=== PATIENT | female | born 1960 | race Caucasian/White ===

== ENCOUNTER 2016-10-10 08:43 | Emergency (ER) | payer BC ==
[2016-10-10] MEDS ORDERED: KETOROLAC 60 MG/2 ML VIAL IM STA (09:14)
[2016-10-10] MEDS ORDERED: ONDANSETRON ODT 4 MG TAB PO STA (09:14)
--- NOTE | 2016-10-10 09:16 | ED ---
General Adult HPI - General Chief complaint: Back Pain/Injury Stated complaint: LOWER BACK PAIN, VOMITING Time Seen by Provider: 10/10/16 09:02 Source: patient, RN notes reviewed Mode of arrival: wheelchair Limitations: no limitations - History of Present Illness Initial comments: Patient 56-year-old female who presents emergency room today with a chief complaint of exacerbation of chronic back pain. She does admit that she's been going to chiropractor. She states that she's had increased pain both right and left sides. Denies any lumbar radiculopathy. Denies any saddle anesthesia. Denies any bowel or bladder incontinence or retention. Does admit that increased last night. She states she became nauseous had episodes of vomiting. Patient states she has been using ibuprofen at home for the pain but has not been able to take it due to the nausea. Patient denies any other complaints or symptoms currently. She does state that this feels like her chronic back pain. Patient denies any recent fever, chills, shortness of breath, chest pain, abdominal pain, numbness or tingling, dysuria or hematuria, constipation or diarrhea, headaches or visual changes, or any other complaints. - Related Data Home Medications Medication Instructions Recorded Confirmed Levothyroxine Sodium [Synthroid] 88 mcg PO DAILY 10/10/16 10/10/16 Previous Rx's Medication Instructions Recorded Hydrocodone/Acetaminophen [[place] 1 each PO Q6HR PRN #20 tab 10/10/16 5-325] Ibuprofen [Motrin] 800 mg PO Q6HR PRN #30 tab 10/10/16 Ondansetron Odt [Zofran ODT] 4 mg PO Q8HR PRN #15 tab 10/10/16 Allergies Allergy/AdvReac Type Severity Reaction Status Date / Time No Known Allergies Allergy Verified 10/10/16 09:39 Review of Systems ROS Statement: Those systems with pertinent positive or pertinent negative responses have been documented in the HPI. ROS Other: All systems not noted in ROS Statement are negative. Past Medical History Past Medical History: Thyroid Disorder History of Any Multi-Drug Resistant Organisms: None Reported Past Surgical History: Hysterectomy, Orthopedic Surgery Additional Past Surgical History / Comment(s): sinus Past Psychological History: No Psychological Hx Reported Smoking Status: Former smoker Past Alcohol Use History: Occasional Past Drug Use History: None Reported General Exam - General Exam Comments Initial Comments: General: The patient is awake and alert, in no distress, and does not appear acutely ill. Eye: Pupils are equal, round and reactive to light, extra-ocular movements are intact. No nystagmus. There is normal conjunctiva bilaterally. No signs of icterus. Ears, nose, mouth and throat: There are moist mucous membranes and no oral lesions. Neck: The neck is supple, there is no tenderness or JVD. Cardiovascular: There is a regular rate and rhythm. No murmur, rub or gallop is appreciated. Respiratory: Lungs are clear to auscultation, respirations are non-labored, breath sounds are equal. No wheezes, stridor, rales, or rhonchi. Gastrointestinal: Soft, non-distended, non-tender abdomen without masses or organomegaly noted. There is no rebound or guarding present. No CVA tenderness. Bowel sounds are unremarkable. Musculoskeletal: Normal appearance of the lower back. No step-offs deformity of the thoracic or lumbar spine. Patient does have paravertebral tenderness is reproducible on both right and left lower lumbar. Strength 5/5. Sensation intact. Pulses equal bilaterally 2+. Neurological: A&O x 3. CN II-XII intact, There are no obvious motor or sensory deficits. Coordination appears grossly intact. Speech is normal. Skin: Skin is warm and dry and no rashes or lesions are noted. Psychiatric: Cooperative, appropriate mood & affect, normal judgment. Limitations: no limitations Course Vital Signs 10/10/16 08:55 Temperature 99.8 F H Pulse Rate 98 Respiratory 20 Rate Blood Pressure 112/78 O2 Sat by Pulse 99 Oximetry Medical Decision Making - Medical Decision Making Patient reexamined at this time shows no signs of distress. Does admit that she 's feeling better here in the emergency room. Was given a short of Toradol. Patient will be discharged home with a prescription of [place] along with ibuprofen and nausea medication. Advised follow-up the family doctor over the next 2 days return if symptoms increase or worsen or for any other concerns. - Lab Data Lab Results 10/10/16 Range/Units 09:40 Urine Color Yellow Urine Appearance Clear (Clear) Urine pH 7.5 (5.0-8.0) Ur Specific [place] 1.018 (1.001-1.035) Urine Protein Negative (Negative) Urine Glucose (UA) Negative (Negative) Urine Ketones Negative (Negative) Urine Blood Negative (Negative) Urine Nitrate Negative (Negative) Urine Bilirubin Negative (Negative) Urine Urobilinogen <2.0 (<2.0) mg/dL Ur Leukocyte Esterase Negative (Negative) Disposition Clinical Impression: Acute exacerbation of chronic low back pain Disposition: HOME SELF-CARE Condition: Good Instructions: Acute Low Back Pain (ED) Additional Instructions: Please use medication as discussed. Beware that pain medication may make you drowsy. Please follow-up with family doctor in the next 2 days of symptoms have not improved. Please return to emergency room if the symptoms increase or worsen or for any other concerns. Prescriptions: Hydrocodone/Acetaminophen [[place] 5-325] 1 each PO Q6HR PRN #20 tab PRN Reason: Pain Ibuprofen [Motrin] 800 mg PO Q6HR PRN #30 tab PRN Reason: Pain Ondansetron Odt [Zofran ODT] 4 mg PO Q8HR PRN #15 tab PRN Reason: Nausea Time of Disposition: 10:41
[2016-10-10 10:26] LABS: Appearance,Urine Clear (Clear); Bilirubin,Urine Negative (Negative); Glucose,Urine (UA) Negative (Negative); Ketones,Urine Negative (Negative); Leukocyte Esterase,Urine Negative (Negative); Nitrite,Urine Negative (Negative); PH, Urine 7.5 (5.0-8.0); Protein,Urine Negative (Negative); Specific Gravity,Urine 1.018 (1.001-1.035); UA Billing (MACRO vs. MICRO) CHEM; Urobilinogen,Urine <2.0 mg/dL (<2.0)
[2016-10-10 10:49] VITALS: BP 104/70; PULSE 86; RESP 18; TEMP 98.8
== END 2016-10-10 10:49 | disposition home or self-care (01) ==
LOC: EC 08:43
DX: G89.29 Other chronic pain (principal); M54.5 Low back pain; E07.9 Disorder of thyroid, unspecified; Z87.891 Personal history of nicotine dependence; Z79.899 Other long term (current) drug therapy
CPT/HCPCS: 99283; 96372; 81003; 87086; J1885

== ENCOUNTER → 2017-08-26 | Outpatient (CLI) | payer BC | END | disposition home or self-care (01) | LOC: LABWHC1 09:59 → EDSTATUS 10:05 | PROVIDERS: ATTEND Internal Medicine Endocrinology, Diabetes & Metabolism | DX: E89.0 Postprocedural hypothyroidism (principal) | CPT/HCPCS: 36415; 84439; 84443 ==

== ENCOUNTER 2018-06-29 12:43 | Inpatient (IN) | payer BC ==
[2018-06-29] MEDS ORDERED: ASPIRIN 81 MG PO STA (13:21)
[2018-06-29] MEDS ORDERED: DILTIAZEM DRIP BOLUS FROM BAG 1 MG SOLN IV ONE (13:21)
[2018-06-29] MEDS ORDERED: SODIUM CHLORIDE 0.9% 1,000 ML IV STA (13:21)
[2018-06-29] MEDS ORDERED: HEPARIN SODIUM,PORCINE 10,000 UNIT/ML 1 ML VIAL IV STA (13:21)
[2018-06-29] MEDS ORDERED: HEPARIN SOD,PORK IN 0.45% NACL 25,000 UNIT in 0.45% NACL 1 500ML.BAG IV SCH (13:30)
--- NOTE | 2018-06-29 13:30 | ED ---
Arrhythmia/Palpitations HPI - General Chief Complaint: Arrhythmia/Palpitations Stated Complaint: Heart Palpitations Time Seen by Provider: 06/29/18 13:02 Source: patient, RN notes reviewed Mode of arrival: ambulatory Limitations: no limitations - History of Present Illness Initial Comments: This is a 58-year-old female with a history of thyroid disease no prior history of heart disease who states she had the onset around 8 AM this morning of palpitations lightheadedness some sweats and some chest tightness. She states is been relatively persistent she had no prior episodes of this in the past. She denies any heart history personally no recent fevers chills nausea vomiting. She drinks tea but nothing urinary no alcohol other than 2 beers yesterday she states MD Complaint: rapid heart beat, "heart racing", palpitations - Related Data Home Medications Medication Instructions Recorded Confirmed Levothyroxine Sodium [Synthroid] 88 mcg PO DAILY 10/10/16 06/29/18 Aspirin EC [Ecotrin Low Dose] 162 mg PO ONCE PRN 06/29/18 06/29/18 Allergies Allergy/AdvReac Type Severity Reaction Status Date / Time No Known Allergies Allergy Verified 06/29/18 13:14 Review of Systems ROS Statement: Those systems with pertinent positive or pertinent negative responses have been documented in the HPI. ROS Other: All systems not noted in ROS Statement are negative. Past Medical History Past Medical History: Thyroid Disorder History of Any Multi-Drug Resistant Organisms: None Reported Past Surgical History: Hysterectomy, Orthopedic Surgery Additional Past Surgical History / Comment(s): sinus Past Psychological History: No Psychological Hx Reported Smoking Status: Former smoker Past Alcohol Use History: Occasional Past Drug Use History: None Reported General Exam - General Exam Comments Initial Comments: Is a well-developed well-nourished awake alert oriented 3 female Limitations: no limitations General appearance: alert, anxious Head exam: Present: atraumatic, normocephalic, normal inspection Eye exam: Present: normal appearance, PERRL, EOMI. Absent: scleral icterus, conjunctival injection, periorbital swelling ENT exam: Present: normal exam, mucous membranes moist Neck exam: Present: normal inspection. Absent: tenderness, meningismus, lymphadenopathy Respiratory exam: Present: normal lung sounds bilaterally. Absent: respiratory distress, wheezes, rales, rhonchi, stridor Cardiovascular Exam: Present: tachycardia, irregular rhythm. Absent: systolic murmur, diastolic murmur, rubs, gallop, clicks GI/Abdominal exam: Present: soft, normal bowel sounds. Absent: distended, tenderness, guarding, rebound, rigid Extremities exam: Present: normal inspection, full ROM, normal capillary refill. Absent: tenderness, pedal edema, joint swelling, calf tenderness Back exam: Present: normal inspection Neurological exam: Present: alert, oriented X3, CN II-XII intact Psychiatric exam: Present: normal affect, normal mood Skin exam: Present: warm, dry, intact, normal color. Absent: rash Course Vital Signs 06/29/18 06/29/18 12:46 13:50 Temperature 98.1 F Pulse Rate 76 157 H Respiratory 18 18 Rate Blood Pressure 99/56 121/71 O2 Sat by Pulse 98 99 Oximetry - Reevaluation(s) Reevaluation #1: 06/29/18 14:55 Reevaluation patient reveals her heart rate is trending down but she still in A. fib. EKG Findings - EKG Results: EKG: interpreted by KAY (Atrial fibrillation with rapid ventricular response rate of 154 QRS 84 QT since QTC 290/464) Medical Decision Making - Medical Decision Making I did discuss findings with the patient and her . Patient is in atrial fibrillation with a rapid ventricular response - Lab Data Result diagrams: 06/29/18 13:18 06/29/18 13:18 Lab Results 06/29/18 06/29/18 06/29/18 Range/Units 13:18 13:18 13:18 WBC 10.4 (3.8-10.6) k/uL RBC 4.80 (3.80-5.40) m/uL Hgb 13.9 (11.4-16.0) gm/dL Hct 43.3 (34.0-46.0) % MCV 90.1 (80.0-100.0) fL MCH 28.9 (25.0-35.0) pg MCHC 32.1 (31.0-37.0) g/dL RDW 13.5 (11.5-15.5) % Plt Count 364 (150-450) k/uL Neutrophils % 62 % Lymphocytes % 25 % Monocytes % 6 % Eosinophils % 3 % Basophils % 1 % Neutrophils # 6.5 (1.3-7.7) k/uL Lymphocytes # 2.6 (1.0-4.8) k/uL Monocytes # 0.6 (0-1.0) k/uL Eosinophils # 0.3 (0-0.7) k/uL Basophils # 0.1 (0-0.2) k/uL PT (9.0-12.0) sec INR (<1.2) APTT (22.0-30.0) sec D-Dimer (<0.60) mg/L FEU Sodium 141 (137-145) mmol/L Potassium 4.4 (3.5-5.1) mmol/L Chloride 106 (98-107) mmol/L Carbon Dioxide 23 (22-30) mmol/L Anion Gap 12 mmol/L BUN 19 H (7-17) mg/dL Creatinine 0.76 (0.52-1.04) mg/dL Est GFR (CKD-EPI)AfAm >90 (>60 ml/min/1.73 sqM) Est GFR (CKD-EPI)NonAf 88 (>60 ml/min/1.73 sqM) Glucose 116 H (74-99) mg/dL Calcium 9.3 (8.4-10.2) mg/dL Magnesium 2.0 (1.6-2.3) mg/dL Total Bilirubin 0.5 (0.2-1.3) mg/dL AST 18 (14-36) U/L ALT 26 (9-52) U/L Alkaline Phosphatase 86 (38-126) U/L Total Creatine Kinase 88 (30-135) U/L CK-MB (CK-2) 1.1 (0.0-2.4) ng/mL CK-MB (CK-2) Rel Index 1.3 Troponin I 0.028 (0.000-0.034) ng/mL Total Protein 7.4 (6.3-8.2) g/dL Albumin 4.1 (3.5-5.0) g/dL TSH 1.600 (0.465-4.680) mIU/L 06/29/18 Range/Units 13:18 WBC (3.8-10.6) k/uL RBC (3.80-5.40) m/uL Hgb (11.4-16.0) gm/dL Hct (34.0-46.0) % MCV (80.0-100.0) fL MCH (25.0-35.0) pg MCHC (31.0-37.0) g/dL RDW (11.5-15.5) % Plt Count (150-450) k/uL Neutrophils % % Lymphocytes % % Monocytes % % Eosinophils % % Basophils % % Neutrophils # (1.3-7.7) k/uL Lymphocytes # (1.0-4.8) k/uL Monocytes # (0-1.0) k/uL Eosinophils # (0-0.7) k/uL Basophils # (0-0.2) k/uL PT 9.9 (9.0-12.0) sec INR 1.0 (<1.2) APTT 26.0 (22.0-30.0) sec D-Dimer 0.69 H (<0.60) mg/L FEU Sodium (137-145) mmol/L Potassium (3.5-5.1) mmol/L Chloride (98-107) mmol/L Carbon Dioxide (22-30) mmol/L Anion Gap mmol/L BUN (7-17) mg/dL Creatinine (0.52-1.04) mg/dL Est GFR (CKD-EPI)AfAm (>60 ml/min/1.73 sqM) Est GFR (CKD-EPI)NonAf (>60 ml/min/1.73 sqM) Glucose (74-99) mg/dL Calcium (8.4-10.2) mg/dL Magnesium (1.6-2.3) mg/dL Total Bilirubin (0.2-1.3) mg/dL AST (14-36) U/L ALT (9-52) U/L Alkaline Phosphatase (38-126) U/L Total Creatine Kinase (30-135) U/L CK-MB (CK-2) (0.0-2.4) ng/mL CK-MB (CK-2) Rel Index Troponin I (0.000-0.034) ng/mL Total Protein (6.3-8.2) g/dL Albumin (3.5-5.0) g/dL TSH (0.465-4.680) mIU/L - Radiology Data Radiology results: report reviewed (I did review the imaging and report no definite acute findings.), image reviewed Disposition Clinical Impression: Atrial fibrillation Disposition: ADMITTED IP TO THIS HOSP Condition: Stable Referrals: Naman Meyer DO [Primary Care Provider] - 1-2 days
[2018-06-29 13:46] LABS: Basophils # (A) 0.1 k/uL (0-0.2); Basophils % (A) 1 %; Eosinophils # (A) 0.3 k/uL (0-0.7); Eosinophils % (A) 3 %; HCT 43.3 % (34.0-46.0); HGB 13.9 gm/dL (11.4-16.0); Lymphocytes # (A) 2.6 k/uL (1.0-4.8); Lymphocytes % (A) 25 %; MCH 28.9 pg (25.0-35.0); MCHC 32.1 g/dL (31.0-37.0); MCV 90.1 fL (80.0-100.0); Mean Platelet Volume 6.8; Monocytes # (A) 0.6 k/uL (0-1.0); Monocytes % (A) 6 %; Neutrophils # (A) 6.5 k/uL (1.3-7.7); Neutrophils % (A) 62 %; Platelet Count 364 k/uL (150-450); RDW 13.5 % (11.5-15.5); WBC 10.4 k/uL (3.8-10.6)
[2018-06-29] MEDS: DILTIAZEM 50 MG in SODIUM CHLORIDE 0.9% 40 ML IV SCH (13:48)
[2018-06-29 13:55] LABS: ALT 26 U/L (9-52); AST 18 U/L (14-36); Albumin 4.1 g/dL (3.5-5.0); Alkaline Phosphatase 86 U/L (38-126); Anion Gap 12 mmol/L; Blood Urea Nitrogen 19 mg/dL (7-17); Calcium 9.3 mg/dL (8.4-10.2); Carbon Dioxide 23 mmol/L (22-30); Chloride 106 mmol/L (98-107); Glucose 116 mg/dL (74-99); Potassium 4.4 mmol/L (3.5-5.1); Sodium 141 mmol/L (137-145); Total Bilirubin 0.5 mg/dL (0.2-1.3); Total Protein 7.4 g/dL (6.3-8.2)
[2018-06-29 14:03] LABS: Prothrombin Time 9.9 sec (9.0-12.0)
[2018-06-29 14:08] LABS: D-Dimer 0.69 mg/L FEU (<0.60)
--- NOTE | 2018-06-29 14:08 | XR ---
EXAMINATION TYPE: XR chest 2V DATE OF EXAM: 06/29/2018 HISTORY: dysrhythmia. REFERENCE: NONE. FINDINGS: The lungs are overinflated but clear. Pleural spaces are clear. Heart size is within normal limits. IMPRESSION: PLEASE CORRELATE FOR COPD.
[2018-06-29 14:21] LABS: Creatine Kinase MB 1.1 ng/mL (0.0-2.4); Troponin I 0.028 ng/mL (0.000-0.034)
[2018-06-29] MEDS ORDERED: NALOXONE 0.4 MG/ML 1 ML VIAL IV PRN (15:12)
[2018-06-29] MEDS ORDERED: ASPIRIN 81 MG PO PRN (15:14)
[2018-06-29] MEDS ORDERED: SODIUM CHLORIDE 0.9% 1,000 ML IV SCH (15:15)
--- NOTE | 2018-06-29 15:34 | CT ---
EXAMINATION TYPE: CT angio chest DATE OF EXAM: 06/29/2018 3:19 PM COMPARISON: None HISTORY: Pain CT DLP: 259.5 mGycm Automated exposure control for dose reduction was used. CONTRAST: CTA scan of the thorax is performed with IV Contrast, patient injected with 100 mL of Isovue 370, pul monary embolism protocol. There are 3-D post processed images.. FINDINGS: There is some coarse interstitial density in the lung lynne bilaterally. There is no pericardial eff usion. There is no pleural effusion. I see no filling defect in the pulmonary arteries. There is no m ediastinal adenopathy. There are no hilar masses. Ascending aorta measures 3.6 cm. There is no eviden ce of aneurysm. The bony thorax is intact. IMPRESSION: NO EVIDENCE OF PULMONARY EMBOLISM. DIFFUSE INTERSTITIAL PNEUMONIA.
[2018-06-29 16:10] VITALS: BMI 35.6
[2018-06-29 19:40] LABS: Appearance,Urine Clear (Clear); Bilirubin,Urine Negative (Negative); Blood,Urine Negative (Negative); Color,Urine Colorless; Glucose,Urine (UA) Negative (Negative); Ketones,Urine Trace (Negative); Leukocyte Esterase,Urine Negative (Negative); Nitrite,Urine Negative (Negative); Protein,Urine Negative (Negative); Specific Gravity,Urine 1.015 (1.001-1.035); Urobilinogen,Urine <2.0 mg/dL (<2.0)
--- NOTE | 2018-06-29 20:05 | HP ---
HISTORY AND PHYSICAL DATE OF SERVICE: 06/29/2018 CHIEF COMPLAINT: Palpitation. HISTORY OF PRESENT ILLNESS: This 58-year-old woman with a past medical history of multiple medical problems has had DJD, hyperthyroidism. The patient has hyperthyroidism, but no hypothyroidism, hysterectomy, being followed by Dr. Meyer in the outpatient setting has had palpitations since 8 o'clock this morning. The patient had some lightheadedness and some sweating and some chest heaviness and the patient came to [facility]. The patient is found to have atrial fibrillation with fast ventricular rate. The patient was given Cardizem and admitted for evaluation and treatment. There is no history of fever, rigors. No headache, loss of consciousness or seizures. PAST MEDICAL: History of hyperthyroidism, history of DJD, history of hysterectomy, history of depression. MEDICATIONS: Prior to admission include levothyroxine 88 mcg p.o. daily. ALLERGIES: None. FAMILY HISTORY: History of atrial fibrillation, emphysema and anxiety. SOCIAL HISTORY: Previous history of smoking. Occasional alcohol intake. REVIEW OF SYSTEMS: ENT: No diminished hearing or vision. CARDIOVASCULAR: As mentioned. RESPIRATORY: As mentioned earlier. GI: No nausea. : No dysuria. NERVOUS SYSTEM: No numbness or weakness. ALLERGY/IMMUNOLOGY: No asthma or hayfever. MUSCULOSKELETAL: As mentioned earlier. HEMATOLOGY: No history of anemia. ENDOCRINE: No history of diabetes. Otherwise mentioned earlier. CONSTITUTIONAL: As mentioned earlier. DERMATOLOGY: Negative. RHEUMATOLOGY: Negative. PSYCHIATRY: As mentioned earlier. PHYSICAL EXAMINATION: Alert and oriented x3. Pulse is 157, blood pressure 121/71, respiration 18, temperature 97.2, pulse ox 98% on room air. HEENT: Conjunctivae normal. Oral mucosa moist. Neck is no jugular venous distention. No carotid bruit. No lymph node enlargement. CARDIOVASCULAR: S1, S2 muffled, irregular. RESPIRATORY: Breath sounds diminished in the bases. No rhonchi, no crackles. ABDOMEN: Soft, nontender. No mass palpable. LEGS: No edema, no swelling. NERVOUS SYSTEM: Higher functions as mentioned. Moves all 4 limbs. No focal motor deficits. LYMPHATICS: No lymphadenopathy in the neck, axillae, groin. SKIN: No ulcer, rash, bleeding. LABS: CBC within normal. D-dimer is 0.69, otherwise glucose 116. Chest CTA showed no evidence of pulmonary embolism but ground-glass appearance with possible interstitial pneumonia. ASSESSMENT: 1. Atrial ablation, new onset with fast ventricular rate. 2. Possibly interstitial pneumonia. 3. Hypothyroidism. 4. History of hyperthyroidism. 5. History of degenerative joint disease. 6. History hysterectomy. 7. History of depression. 8. Remote history of nicotine dependence. RECOMMENDATIONS AND DISCUSSION: This 58-year-old woman who presented with multiple complex medical issues. At this time I recommend to continue the Cardizem drip. Continue cardiology consultation. 2 D echo with Doppler. Resume the home medications. TSH is normal. Otherwise, I would also recommend empiric antibiotics because of the concerns of pneumonia. Otherwise, prognosis guarded because of the multiple complex medical issues. A copy of dictation forwarded to Dr. Meyer who is the primary physician. MMMARY ALICEL / IJN: [id number] /
[2018-06-30 02:24] LABS: Basophils # (A) 0.1 k/uL (0-0.2); Basophils % (A) 1 %; Eosinophils # (A) 0.4 k/uL (0-0.7); Eosinophils % (A) 4 %; HGB 12.5 gm/dL (11.4-16.0); Lymphocytes # (A) 3.3 k/uL (1.0-4.8); Lymphocytes % (A) 41 %; MCH 28.6 pg (25.0-35.0); MCHC 32.1 g/dL (31.0-37.0); MCV 89.3 fL (80.0-100.0); Monocytes # (A) 0.6 k/uL (0-1.0); Monocytes % (A) 7 %; Neutrophils # (A) 3.5 k/uL (1.3-7.7); Neutrophils % (A) 44 %; Platelet Count 293 k/uL (150-450); RBC 4.36 m/uL (3.80-5.40); RDW 13.5 % (11.5-15.5)
[2018-06-30 02:40] LABS: Anion Gap 8 mmol/L; Blood Urea Nitrogen 19 mg/dL (7-17); Calcium 8.9 mg/dL (8.4-10.2); Carbon Dioxide 23 mmol/L (22-30); Chloride 111 mmol/L (98-107); Glucose 95 mg/dL (74-99); Potassium 4.1 mmol/L (3.5-5.1); Sodium 142 mmol/L (137-145)
[2018-06-30] MEDS: DILTIAZEM 50 MG in SODIUM CHLORIDE 0.9% 40 ML IV SCH (04:52)
[2018-06-30] MEDS ORDERED: LEVOTHYROXINE 88 MCG TAB PO SCH (06:30)
[2018-06-30 07:48] VITALS: RESP 17; TEMP 97.4
[2018-06-30] MEDS ORDERED: FLECAINIDE 50 MG TAB PO SCH (09:00)
[2018-06-30] MEDS ORDERED: ASPIRIN 325 MG TAB PO SCH (09:00)
--- NOTE | 2018-06-30 09:04 | CONS ---
CONSULTATION CHIEF COMPLAINT: Sustained palpitations. This is a 58-year-old lady with history of hypothyroidism who presented to hospital complaining of sudden onset palpitations. She was found to be in atrial fibrillation with rapid ventricular rate with a heart rate of 150s per minute. She converted to sinus rhythm and subsequently had another short self-limited run of atrial fibrillation. Since that time she has been doing well and is free of symptoms. She denies chest pain, difficulty in breathing, dizziness, syncope, or focal neurological deficits. There is no prior history of TIA or CVA. There is no history of diabetes, hypertension, congestive heart failure, or cardiomyopathy. Patient has hypothyroidism and does Synthroid supplements. Her TSH is within normal limits. When she presented initially, she was started on Cardizem and heparin. Cardizem has subsequently been stopped. Patient is having an echocardiogram and it shows normal LV systolic function. I am going to start her on flecainide 50 mg b.i.d. for rhythm suppression and use aspirin for anticoagulation. Will ambulate her, discharge her home and arrange outpatient stress test. Patient does not require Coumadin or anticoagulants as she does not have any stroke risk factors. PAST MEDICAL HISTORY: Significant for hypothyroidism. CURRENT MEDICATIONS: Into levothyroxine. ALLERGIES: No known drug allergies. FAMILY HISTORY: Negative for premature coronary artery disease. SOCIAL HISTORY: Negative for current smoking, EtOH abuse, or drug allergies. REVIEW OF SYSTEMS: HEENT is unremarkable. CARDIAC: As described above. RESPIRATORY: Negative. GI: Negative. GENITOURINARY: Negative. ALLERGY?IMMUNOLOGY: Negative. SKIN: Negative. MUSCULOSKELETAL: Negative. ENDOCRINE: Negative. DERM: Negative. CONSTITUTIONAL: Negative. ONCOLOGICAL: Negative. ENGINEERING DOCUMENTATION SPECIALIST: Negative Rest of the system review is not relevant. PHYSICAL EXAM: Patient is comfortable at rest. Vital signs are stable. There is no jugular venous distention. Carotid upstroke is normal. There is no bruit. Chest exam reveals good air entry bilaterally. Heart exam reveals first and second heart sounds. No gallop. No murmur. No rub. Abdomen is soft, nontender. Exam of extremities did not reveal any edema. Peripheral pulses are felt. ENGINEERING DOCUMENTATION SPECIALIST exam did not reveal focal neurological deficits. LABS: Show a hemoglobin of 12.5, platelet count is 293. Potassium is 4.1, creatinine is 0.6. EKG shows atrial fibrillation with nonspecific ST-T wave changes. Subsequently converted to sinus rhythm and remains in sinus rhythm. The patient had a D-dimer that was slightly elevated. A CT scan of the chest was negative for pulmonary embolism. Echocardiogram shows normal LV function. There is no evidence of valvular heart disease. ASSESSMENT: Paroxysmal atrial fibrillation. PLAN: I am going to start the patient on flecainide 50 mg b.i.d. and use aspirin for anticoagulation, ambulate her. If she is feeling well, discharge her home and arrange for an outpatient stress test and follow up with me. MMODL / IJN: [id number] /
[2018-06-30 11:34] VITALS: BP 125/63; PULSE 71
--- NOTE | 2018-06-30 12:23 | ECHOF ---
Referral Reason:afib MEASUREMENTS -------- HEIGHT: 157.5 cm WEIGHT: 89.4 kg BP: IVSd: 1.1 cm (0.6 - 1.1) LVIDd: 3.1 cm (3.9 - 5.3) LVPWd: 1.5 cm (0.6 - 1.1) IVSs: 1.6 cm LVIDs: 1.8 cm LVPWs: 1.9 cm LAESV Index (A-L): 17.20 ml/m Ao Diam: 3.1 cm (2.0 - 3.7) AV Cusp: 1.9 cm (1.5 - 2.6) LA Diam: 3.7 cm (2.7 - 3.8) MV EXCURSION: 11.453 mm (> 18.000) MV EF SLOPE: 51 mm/s (70 - 150) EPSS: 1.0 cm MV E Wallace: 0.97 m/s MV DecT: 224 ms MV A Wallace: 0.92 m/s MV E/A Ratio: 1.06 RAP: 5.00 mmHg RVSP: 21.98 mmHg FINDINGS -------- Sinus rhythm. This was a technically good study. The left ventricular size is normal. There is borderline concentric left ventricular hypertrophy. Overall left ventricular systolic function is normal with, an EF between 55 - 60 %. The right ventricle is normal in size and function. Normal LA size by volume 22+/-6 ml/m2. The right atrium is normal in size. The aortic valve is trileaflet, and appears structurally normal. No aortic stenosis or regurgitation. The mitral valve is normal. There is trace mitral regurgitation. Mild tricuspid regurgitation present. The right ventricular systolic pressure, as measured by Doppl er, is 21.98mmHg. There is no pulmonic regurgitation present. The aortic root size is normal. Normal inferior vena cava with normal inspiratory collapse consistent with estimated right atrial pre ssure of 5 mmHg. There is no pericardial effusion. CONCLUSIONS -------- 1. Sinus rhythm. 2. This was a technically good study. 3. The left ventricular size is normal. 4. There is borderline concentric left ventricular hypertrophy. 5. Overall left ventricular systolic function is normal with, an EF between 55 - 60 %. 6. Normal LA size by volume 22+/-6 ml/m2. 7. The aortic valve is trileaflet, and appears structurally normal. No aortic stenosis or regurgitati on. 8. The mitral valve is normal. 9. There is trace mitral regurgitation. 10. Mild tricuspid regurgitation present. 11. The right ventricular systolic pressure, as measured by Doppler, is 21.98mmHg. 12. There is no pulmonic regurgitation present. 13. The aortic root size is normal. 14. Normal inferior vena cava with normal inspiratory collapse consistent with estimated right atrial pressure of 5 mmHg. 15. There is no pericardial effusion. INTELLECTUAL PROPERTY COUNSEL: Belinda Figueroa RDCS
--- NOTE | 2018-06-30 19:28 | DS ---
DISCHARGE SUMMARY FINAL DIAGNOSES: 1. Atrial fibrillation with fast ventricular rate with paroxysmal atrial fibrillation. 2. Possible interstitial pneumonia, mild. 3. Hypothyroidism. 4. History of hyperthyroidism. 5. History of degenerative joint disease. 6. History hypertension. 7. History of depression. 8. Remote history of nicotine dependence. DISCHARGE DISPOSITION: The patient is being discharged in stable condition with guarded prognosis. HISTORY OF PRESENT ILLNESS: This 58-year-old woman with a past medical history of multiple medical problems being followed by Dr. Meyer in the outpatient setting, was admitted with atrial fibrillation with fast ventricular rate. Patient treated with Cardizem. Patient improved significantly. Dr. Calderon saw the patient and antiarrhythmics were suggested. The patient also has some mild pneumonia in the CT scan, treated with antibiotics. Improved significantly. On exam, vital signs stable. Cardio system: Normal. Respirations: Clear to auscultation. Abdomen soft. Nervous system: No focal deficits. DISCHARGE ADVICE AND MEDICATIONS: 1. Discharge diet is cardiac diet. 2. Activity limited until followup. 3. Follow up with Dr. Meyer in 2-3 days. 4. Follow up with Dr. Calderon as advised. MEDICATION: 1. Levothyroxine 88 mcg p.o. daily. 2. Aspirin 81 mg p.o. daily. 3. Ceftin 500 mg p.o. b.i.d. for 3 days. 4. Tambocor that is flecainide 50 mg p.o. b.i.d. Once again the patient is being discharged in stable condition with guarded prognosis. MMODL / IJN: [id number] /
== END 2018-06-30 16:33 | disposition home or self-care (01) | DRG 308 ==
LOC: EC 12:43 → 6SEL 15:14
PROVIDERS: ADMIT Internal Medicine; ATTEND Internal Medicine
DX: I48.0 Paroxysmal atrial fibrillation (principal); J18.9 Pneumonia, unspecified organism; E03.9 Hypothyroidism, unspecified; I10 Essential (primary) hypertension; Z82.5 Family history of asthma and other chronic lower respiratory diseases; Z87.891 Personal history of nicotine dependence; Z90.710 Acquired absence of both cervix and uterus; Z79.82 Long term (current) use of aspirin; Z79.890 Hormone replacement therapy
CPT/HCPCS: 36415; 71046; 71275; 80048; 80053; 81003; 82550; 82553; 83735; 84443; 84484; 85025; 85379; 85610; 85730; 93005; 93306; 94760; 96365; 96366; 96368; 96376; 99285

== ENCOUNTER → 2018-09-05 | Outpatient (CLI) | payer BC ==
[2018-09-05 17:02] LABS: T4, Free (Free Thyroxine) 1.4 ng/dL (0.80-1.80)
== END | disposition home or self-care (01) ==
LOC: LABWHC1 08:49
PROVIDERS: ATTEND Internal Medicine Endocrinology, Diabetes & Metabolism
DX: E89.0 Postprocedural hypothyroidism (principal); R63.5 Abnormal weight gain
CPT/HCPCS: 36415; 83525; 84439; 84443

== ENCOUNTER → 2018-11-17 | Outpatient (CLI) | payer BC ==
[2018-11-18 00:14] LABS: T4, Free (Free Thyroxine) 1.4 ng/dL (0.80-1.80)
== END | disposition home or self-care (01) ==
LOC: LABWHC1 16:31
PROVIDERS: ATTEND Internal Medicine Endocrinology, Diabetes & Metabolism
DX: E03.9 Hypothyroidism, unspecified (principal)
CPT/HCPCS: 36415; 84439; 84443